=== PATIENT | female | born 1930 | race Caucasian/White ===

== ENCOUNTER 2017-04-14 22:33 | Emergency (ER) | payer MEDICARE ==
[~2017-04-14 22:33] MED LIST: AMLODIPINE BESY10 MG PO; ASPIRIN EC81 M1 PO; ASPIRIN81 M1 PO; BONIVA150 MG PO; CO Q10200 MG PO; COENZYME Q PO; COLACE PO; FERROUS SULFATE1 TAB PO; LIPITOR PO; LOPRESSOR PO; LOVAZA1 G; LOVAZA1 G PO; MULTIPLE VITAMI1 T10 PO; NEXIUM PO; NIASPAN PO; NITROGLYCERIN0.3 MG SL; PLAVIX PO; PROLIA60 MG/1 ML; TRICOR145 MG PO; VALTREX500 MG PO; VICODIN 5/1 TAB 5/50 PO; VITAMIN D2000 UNI1 PO; ZESTRIL40 MG PO
== END 2017-04-14 23:00 | disposition expired ==
LOC: CED 22:33
DX: I46.9 Cardiac arrest, cause unspecified (principal); I50.9 Heart failure, unspecified; Z79.82 Long term (current) use of aspirin; Z79.899 Other long term (current) drug therapy
CPT/HCPCS: 92950; 99285